=== PATIENT | male | born 1980 | race Caucasian/White ===

== ENCOUNTER 2020-09-01 11:05 | Emergency (ER) | payer OTHER, SELFPAY ==
--- NOTE | ~2020-09-01 | XR_ITS ---
EXAMINATION: XR chest 2V CLINICAL INFORMATION: Hypoxia wheezing. COMPARISON: Prior chest x-ray 07/18/2018. TECHNIQUE: XR chest 2V Lungs and Digna: Both lungs are clear. Pleura: Normal. Costophrenic angles are sharp. No pneumothorax. Heart: The heart is normal in size. Mediastinum: The mediastinum is within normal limits.. Bones: Skeletal structures included are normal for patient's age. XR/XR chest 2V IMPRESSION: No radiographic evidence of acute infiltrates or failure to explain patient's symptoms. No pleural effusion.
[2020-09-01 11:11] VITALS: BP 152/78; PULSE 83; RESP 16; TEMP 36.7; O2SAT 87; BMI 35.6
--- NOTE | 2020-09-01 12:14 | ECG_ITS ---
Test Reason : CP Blood Pressure : / mmHG Vent. Rate : 075 BPM Atrial Rate : 075 BPM P-R Int : 142 ms QRS Dur : 098 ms QT Int : 380 ms P-R-T Axes : 071 075 049 degrees QTc Int : 424 ms Normal sinus rhythm T wave abnormality, consider anterior ischemia Abnormal ECG When compared with ECG of 30-JUL-2011 17:29, Non-specific change in ST segment in Anterior leads T wave inversion now evident in Anterior leads Referred By: Theresa Ching Electronically Signed By:JERRY CALLAWAY
--- NOTE | 2020-09-01 12:22 | ED.GENADULT ---
HPI - General Adult General Chief complaint: Abdominal Pain Stated complaint: ABD PAIN - DARK STOOL Time Seen by Provider: 09/01/20 12:04 Source: patient Mode of arrival: ambulatory History of Present Illness HPI narrative: 39 y.o. M with PMH of prior substance use on soboxone presenting to the ED with multiple complaints. He states over the past week he has been having upper abdominal pain and black stools x 1 week. He has a sour taste to his mouth. He has accompanied nausea but no vomiting. His PO intake was decreased due to his sour taste. No associated loss of smell. He also endorses feeling SOB. At times gets central chest pain that radiates from his abdominal pain. When he arrived he was told his oxygen was in the 80s. he is supposed to wear a CPAP at nightime but never receieved one. Deniex oxygen use during the day. Also reporting muscle spasticity in his hand, he states his fingers jump if he were to go smoke a cigarette. He otherwise denies fevers, cough, vomiting, urinary changes. He denies OTC NSAID use. He drank one alcohol drink last week but denies everyday use. Related Data Previous Rx's Medication Instructions Recorded albuterol sulfate [Ventolin HFA] 2 puff INHALATION Q6H PRN #6.7 g 09/01/20 prednisone 20 mg PO BID 4 Days #8 tab 09/01/20 Allergies Allergy/AdvReac Type Severity Reaction Status Date / Time bee pollen [BEE STINGS] Allergy Severe ANAPHALAXSI Unverified 03/21/20 15:44 S acetaminophen [From TYLENOL] Allergy Intermediate HIVES Unverified 03/21/20 15:44 NSAIDS (Non-Steroidal Allergy Intermediate HIVES, Unverified 03/21/20 15:44 Anti-Inflamma UPSETS [NSAIDS (NON-STEROIDAL STOMACHE ANTI-INFLAMMA] Review of Systems Constitutional: Constitutional: Denies fever(s) and Denies headache(s) Eyes: Eyes: Reports no additional eye complaints ENT: Denies headache(s) Comments: sour taste in mouth Cardiovascular: Cardiovascular: Reports chest pain and Reports dyspnea Respiratory: Respiratory: Reports dyspnea Gastrointestinal: Gastrointestinal: Reports abdominal pain, Reports melena and Denies vomiting Genitourinary: Genitourinary: Denies dysuria Musculoskeletal: Comments: spasiticity in hands Neurologic: Denies headache(s) PMFSH Past Medical History Medical History Asthma COPD (chronic obstructive pulmonary disease) Smoker Substance abuse Social History Social History (Updated 09/01/20 @ 12:42 by ERIBERTO Ruby) Smoking Status: Current every day smoker Substance Use Type: Marijuana Substance Use Frequency: Chronic Longstanding Advance Directives: No Advance Directives Information Provided: Yes Physical Exam Vital Signs: Vital Signs: Last Vital Signs Temp 98.1 F 09/01/20 11:11 Pulse 88 09/01/20 16:00 Resp 20 09/01/20 16:00 BP 126/76 09/01/20 16:00 Pulse Ox 87 L 09/01/20 16:00 Body Mass Index 35.6 Const: Other: poor hygiene HENMT: Head: Yes atraumatic Eyes: Pupils: Equal, round and reactive pupils present Neck: Neck: Yes full ROM and Yes supple Resp: Other: wheezing throughout, hypoxia to high 80s on RA, 96% on 2L, no tachypnea or dyspnea, able to speak in full sentences Cardio: Rate: regular rate Rhythm: regular rhythm GI: Other: mild tenderness to upper abdomen, no peritoneal signs, not guarding Inspection: No distended : Other: guiac negative, stool dark brown, no melena, RN at bedside during rectal exam Back/Spine/Pelvis: Other: normal ROM Skin: Other: warm, dry Neuro: Other: A&O x4, nonfocal neurologc<del>i</del>al exam General: moves all extremities Cranial nerves: Yes Equal, round and reactive pupils present Extrem: Other: no calf tenderness, no peripheral edema General: Yes full ROM Psych: Appearance: disheveled Course Reevaluation(s) Reevaluation #1: Pt. returned from xray, not on the O2 sat probe, not on nasal cannula, placed on O2 sat probe in low 80s, no dyspnea, speaking in full sentences, pt. placed on 3L nasal cannula with appropriate improvement of his oxygen saturation levels. Respiratory therapy at bedside to provide duoneb tx and check ABG since his bicarb level is high. Attending updated regarding lab findings. Time: 14:29 Reevaluation #2: Discussed admission for his hypoxia most likely secondary to his COPD. I discussed his troponin is elevated and will need further work up. His H&H is stable, no indication for a transfusion. His CXR did not show free air or infectious process. Pt is anxious and states he has to go home to take care of some business, assured me he would return. I encouraged him to stay at least for a delta troponin. He is willing to stay for this. His ABG did show elevated PCO2, but normal PH, which is most likely compensated chronic process rather than acute. He is able to speak in full sentences and is not dyspneic, therefore BiPap not initiated. Time: 14:58 Time: 16:33 Additional Reevaluation(s): O2 saturation 91% on 2L. I discussed he should stay for his hypoxia. His delta troponin downtrended but still indeterminate. He is concerned for the taste in his mouth, will swab for COVID. I discussed at length with him that he has multiple processes going on and he needs to be admitted for further management. He continues to decline. I vocalized concern for possible GI bleed, worsening bleeding, worsening hypoxia which could lead to respiratory arrest, cardiac arrest and even . Pt. is able to verbalize understanding of the severity of his condition. He has full capacity to decline medical admission. I encouraged him to return. Will send rx for steroids and an inhaler for his COPD. Pt. will leave AMA. Attending updated regarding findings and ultimate disposition. Medical Decision Making [facility] Narrative Medical decision making narrative: 31-year-old male presents emergency department with multiple complaints, Vital signs significant for hypoxia O2 sat 86-80% on room air, improved to 96% on 2 L, otherwise hemodynamically stable Will plan for CBC to assess for leukocytosis, anemia, renal dysfunction. We will check for electrolyte abnormalities. Will check calcium and magnesium level due to his spasicity in his extremities. No tremors noted. No reported of incontinence to suggest seizures. No focal weakness to suggest CVA. Will check LFT for hepatobiliary disease, lipase for pancreatitis. His abdominal exam is benign, no focal weakness. GI bleed is on the differential given his report of black stool, however guiac is negative, will check H&H. No hx of variceal bleed. Will give IV protonix. Will defer octreotide and ceftriaxone. No ETOH use he reports, will check ethanol level. No report of NSAID use. No focal tenderness to suggest cholecysitits, appendicitis. No peritoneal signs. Doubt a perforated ulcer since he has a nonperitoneal exam. Will give GI cocktail. IV fluids. Will check troponin and EKG for ischemia. WIll evaluate CXR for underlying PNA. His hypoxia is most likely secondary to his asthma/COPD, since he has diffuse wheezing. no associated respiratory distress. WIll obtain a type and screen in case he needs a transfusion for his symptoms. Aortic dissection less likely given no ripping/tearing CP into the back. PE less likely as he does not have associated tachycardia, no unilateral leg swelling. CHF exacerbation less likely since he has no pitting edema in his extremities. case discussed with attending Lab Data Result diagrams: 09/01/20 13:20 09/01/20 13:20 Labs: Lab Results 09/01/20 09/01/20 09/01/20 Range/Units 13:20 13:20 13:20 WBC 7.6 (4.8-10.8) X10*3/uL RBC 4.63 (4.60-5.80) X10*6/uL Hgb 13.7 L (14.0-18.0) g/dl Hct 45.7 (42-52) % MCV 98.7 H (80-98) fL MCH 29.6 (27.0-33.0) pg MCHC 30.0 L (31.0-36.0) g/dl RDW 14.9 (11.0-16.0) % Plt Count 194 (160-400) X10*3/uL MPV 9.4 (9.4-12.4) fL Immature Gran % (Auto) 0.3 (0.0-0.4) % Neut % (Auto) 71.3 (45-73) % Lymph % (Auto) 17.0 L (20-40) % [place] % (Auto) 10.6 (2-11) % Eos % (Auto) 0.4 (0-4) % Baso % (Auto) 0.4 (0-2) % Lymph # (Auto) 1.3 (1.2-4.9) X10*3/uL [place] # (Auto) 0.8 (0.1-1.2) X10*3/uL Eos # (Auto) 0.0 (0.0-0.4) X10*3/uL Baso # (Auto) 0.0 (0.0-0.2) X10*3/uL Abs Immat Gran (auto) 0.02 (0.00-0.03) X10*3/uL Absolute Neuts (auto) 5.5 (2.0-8.3) X10*3/uL Absolute Nucleated RBC 0.000 (0.0-0.012) X10*3/uL Nucleated RBC % (auto) 0.0 (0.0-0.2) /100WBC PT (10.8-13.0) SEC INR (0.9-1.1) ABG pH (7.35-7.45) ABG pCO2 (32-45) mmHg ABG pO2 (83-108) mmHg ABG HCO3 (22-26) mmol/L ABG O2 Saturation % ABG Base Excess Oxygen Given Sodium 138 (135-145) mmol/L Potassium 4.8 (3.3-5.1) mmol/L Chloride 91 L (96-108) mmol/L Carbon Dioxide 43 H* (22-29) mmol/L Anion Gap 9 L (12-20) BUN 18 H (9-16) mg/dL Creatinine 0.89 (0.5-1.4) mg/dL Estim Creat Clear Calc 116.6 Estimated GFR > 60 Random Glucose 87 (60-115) mg/dL Calcium 8.3 L (8.4-10.2) mg/dL Magnesium 2.2 (1.6-2.6) mg/dL Total Bilirubin 0.5 (0.0-1.0) mg/dL Direct Bilirubin 0.3 (0.0-0.5) mg/dL AST 25 (5-37) U/L ALT 32 (0-40) U/L Alkaline Phosphatase 48 (39-117) U/L Troponin I High Sens 21.5 (<3.5-35.0) ng/L Total Protein 5.4 L (6.5-8.0) g/dL Albumin 3.6 (3.5-5.0) g/dL Lipase 18 (8-78) U/L Ethyl Alcohol mg/dL Blood Type Antibody Screen 09/01/20 09/01/20 09/01/20 Range/Units 13:20 13:20 13:20 WBC (4.8-10.8) X10*3/uL RBC (4.60-5.80) X10*6/uL Hgb (14.0-18.0) g/dl Hct (42-52) % MCV (80-98) fL MCH (27.0-33.0) pg MCHC (31.0-36.0) g/dl RDW (11.0-16.0) % Plt Count (160-400) X10*3/uL MPV (9.4-12.4) fL Immature Gran % (Auto) (0.0-0.4) % Neut % (Auto) (45-73) % Lymph % (Auto) (20-40) % [place] % (Auto) (2-11) % Eos % (Auto) (0-4) % Baso % (Auto) (0-2) % Lymph # (Auto) (1.2-4.9) X10*3/uL [place] # (Auto) (0.1-1.2) X10*3/uL Eos # (Auto) (0.0-0.4) X10*3/uL Baso # (Auto) (0.0-0.2) X10*3/uL Abs Immat Gran (auto) (0.00-0.03) X10*3/uL Absolute Neuts (auto) (2.0-8.3) X10*3/uL Absolute Nucleated RBC (0.0-0.012) X10*3/uL Nucleated RBC % (auto) (0.0-0.2) /100WBC PT 11.5 (10.8-13.0) SEC INR 1.0 (0.9-1.1) ABG pH (7.35-7.45) ABG pCO2 (32-45) mmHg ABG pO2 (83-108) mmHg ABG HCO3 (22-26) mmol/L ABG O2 Saturation % ABG Base Excess Oxygen Given Sodium (135-145) mmol/L Potassium (3.3-5.1) mmol/L Chloride (96-108) mmol/L Carbon Dioxide (22-29) mmol/L Anion Gap (12-20) BUN (9-16) mg/dL Creatinine (0.5-1.4) mg/dL Estim Creat Clear Calc Estimated GFR Random Glucose (60-115) mg/dL Calcium 8.7 (8.4-10.2) mg/dL Magnesium (1.6-2.6) mg/dL Total Bilirubin (0.0-1.0) mg/dL Direct Bilirubin (0.0-0.5) mg/dL AST (5-37) U/L ALT (0-40) U/L Alkaline Phosphatase (39-117) U/L Troponin I High Sens (<3.5-35.0) ng/L Total Protein (6.5-8.0) g/dL Albumin (3.5-5.0) g/dL Lipase (8-78) U/L Ethyl Alcohol < 10 mg/dL Blood Type Antibody Screen 09/01/20 09/01/20 09/01/20 Range/Units 14:35 15:40 15:40 WBC (4.8-10.8) X10*3/uL RBC (4.60-5.80) X10*6/uL Hgb (14.0-18.0) g/dl Hct (42-52) % MCV (80-98) fL MCH (27.0-33.0) pg MCHC (31.0-36.0) g/dl RDW (11.0-16.0) % Plt Count (160-400) X10*3/uL MPV (9.4-12.4) fL Immature Gran % (Auto) (0.0-0.4) % Neut % (Auto) (45-73) % Lymph % (Auto) (20-40) % [place] % (Auto) (2-11) % Eos % (Auto) (0-4) % Baso % (Auto) (0-2) % Lymph # (Auto) (1.2-4.9) X10*3/uL [place] # (Auto) (0.1-1.2) X10*3/uL Eos # (Auto) (0.0-0.4) X10*3/uL Baso # (Auto) (0.0-0.2) X10*3/uL Abs Immat Gran (auto) (0.00-0.03) X10*3/uL Absolute Neuts (auto) (2.0-8.3) X10*3/uL Absolute Nucleated RBC (0.0-0.012) X10*3/uL Nucleated RBC % (auto) (0.0-0.2) /100WBC PT (10.8-13.0) SEC INR (0.9-1.1) ABG pH 7.41 (7.35-7.45) ABG pCO2 68 H* (32-45) mmHg ABG pO2 70 L (83-108) mmHg ABG HCO3 43 H (22-26) mmol/L ABG O2 Saturation 93.0 % ABG Base Excess 15.3 Oxygen Given 3 L Sodium (135-145) mmol/L Potassium (3.3-5.1) mmol/L Chloride (96-108) mmol/L Carbon Dioxide (22-29) mmol/L Anion Gap (12-20) BUN (9-16) mg/dL Creatinine (0.5-1.4) mg/dL Estim Creat Clear Calc Estimated GFR Random Glucose (60-115) mg/dL Calcium (8.4-10.2) mg/dL Magnesium (1.6-2.6) mg/dL Total Bilirubin (0.0-1.0) mg/dL Direct Bilirubin (0.0-0.5) mg/dL AST (5-37) U/L ALT (0-40) U/L Alkaline Phosphatase (39-117) U/L Troponin I High Sens 21.1 (<3.5-35.0) ng/L Total Protein (6.5-8.0) g/dL Albumin (3.5-5.0) g/dL Lipase (8-78) U/L Ethyl Alcohol mg/dL Blood Type O Negative Antibody Screen NEGATIVE ECG Data Attestation: I personally reviewed and interpreted this ECG as follows: Interpretation: NSR 75 QTC 424 T wave inversion in V1, V2, V3, V4 as compared to EKG in 2012 T wave flattening in III no STEMI Discharge Plan Discharge Clinical Impression: Asthma exacerbation in COPD, Hypoxia, Elevated troponin, GI bleed Patient Disposition: Left Against Medical Advice Instructions: Gastrointestinal Bleeding (ED), COPD (Chronic Obstructive Pulmonary Disease) (ED), Hypoxia (ED) Additional Instructions: You were seen in the emergency department for multiple complaints. Your lab tests showed your heart marker was elevated, your carbon dioxide level was also elevated. Your oxygen saturation levels were low. We also think you may be having a gastrointestinal bleed going on. We recommended you be admitted to the hospital but you declined. We encourage you to return any time should your symptoms worsen. You have decided to leave against medical advice. Prescriptions: New prednisone 20 mg tablet 20 mg PO BID 4 Days Qty: 8 RF: 0 albuterol sulfate [Ventolin HFA] 90 mcg/actuation HFA aerosol inhaler 2 puff inhalation Q6H PRN (Reason: shortness of breath or wheezing) Qty: 6.7 RF: 0 Interventions: ED Discharge Assessment Last Done: 09/01/20 17:34 Discharge Date/Time: 09/01/20 17:05
[2020-09-01] MEDS: Albuterol Sulfate 90 MCG 8 GM INHALER 6 PUFF INHALE (12:29)
[2020-09-01 12:30] VITALS: PULSE 69; O2SAT 97
[2020-09-01] MEDS: Lidocaine HCl Viscous 2 % 15 ML SOLUTION MUCOUS MEM (13:25)
[2020-09-01] MEDS: Magnesium Hydrox/Alum Hydrox 30 ML ORAL.SUSP PO (13:25)
[2020-09-01 13:26] LABS: MANUAL DIFF FLAG NO
[2020-09-01] MEDS: 0.9 % Sodium Chloride 1,000 ML 999 ML IVCONT (13:26)
[2020-09-01 13:28] LABS: Basophils Percent Auto 0.4 % (0-2); Eosinophils Percent Auto 0.4 % (0-4); Hematocrit 45.7 % (42-52); Hemoglobin 13.7 g/dl (14.0-18.0); Imm Gran Abs Auto 0.02 X10*3/uL (0.00-0.03); Imm Gran Pct Auto 0.3 % (0.0-0.4); Lymphocytes Absolute Auto 1.3 X10*3/uL (1.2-4.9); Mean Corpuscular Hemoglobin 29.6 pg (27.0-33.0); Mean Corpuscular Volume 98.7 fL (80-98); Mean Platelet Volume 9.4 fL (9.4-12.4); Monocytes Absolute Auto 0.8 X10*3/uL (0.1-1.2); Monocytes Percent Auto 10.6 % (2-11); Neutrophils Absolute Auto 5.5 X10*3/uL (2.0-8.3); Neutrophils Percent Auto 71.3 % (45-73); Platelet Count 194 X10*3/uL (160-400); Red Blood Count 4.63 X10*6/uL (4.60-5.80); Red Cell Distribution Width 14.9 % (11.0-16.0); White Blood Count 7.6 X10*3/uL (4.8-10.8)
[2020-09-01 13:38] LABS: Prothrombin Time 11.5 SEC (10.8-13.0)
[2020-09-01 13:56] LABS: Calcium 8.7 mg/dL (8.4-10.2)
[2020-09-01 13:57] LABS: Ethanol < 10 mg/dL
[2020-09-01 14:05] LABS: Troponin-I High Sensitivity 21.5 ng/L (<3.5-35.0)
[2020-09-01 14:07] LABS: Alanine Aminotransferase 32 U/L (0-40); Albumin Level 3.6 g/dL (3.5-5.0); Alkaline Phosphatase 48 U/L (39-117); Anion Gap 9 (12-20); Aspartate Amino Transferase 25 U/L (5-37); Bilirubin Direct 0.3 mg/dL (0.0-0.5); Bilirubin Total 0.5 mg/dL (0.0-1.0); Blood Urea Nitrogen 18 mg/dL (9-16); Calcium 8.3 mg/dL (8.4-10.2); Carbon Dioxide 43 mmol/L (22-29); Chloride 91 mmol/L (96-108); Creatinine Clr Calc Pharmacy 116.6; Estimated Glomerular Filt Rate > 60; Glucose Random 87 mg/dL (60-115); Lipase 18 U/L (8-78); Magnesium 2.2 mg/dL (1.6-2.6); Potassium 4.8 mmol/L (3.3-5.1); Sodium 138 mmol/L (135-145); Total Protein 5.4 g/dL (6.5-8.0)
[2020-09-01 14:34] VITALS: O2SAT 92
[2020-09-01 14:39] LABS: Pt Ventilation O2% 3 L
[2020-09-01] MEDS: Albuterol Sulfate (0.083%) 2.5 MG/3 ML VIAL.NEB 7.5 MG INHALE (14:39)
[2020-09-01] MEDS: Ipratropium Bromide 0.5 MG/2.5 ML SOLUTION INHALE (14:39)
[2020-09-01 14:40] VITALS: PULSE 77; O2SAT 92
[2020-09-01 14:43] LABS: Base Excess ABG 15.3
[2020-09-01 14:44] LABS: HCO3 ABG 43 mmol/L (22-26); PO2 ABG 70 mmHg (83-108); pH ABG 7.41 (7.35-7.45)
[2020-09-01 14:45] LABS: ABG PCO2 68 mmHg (32-45)
[2020-09-01] MEDS: predniSONE 20 MG TABLET 60 MG PO (15:15)
[2020-09-01] MEDS: Pantoprazole Sodium 40 MG/10 ML VIAL 80 MG IVPUSH (15:28)
[2020-09-01 15:30] VITALS: PULSE 76; RESP 12; O2SAT 93
[2020-09-01 16:00] VITALS: BP 126/76; PULSE 88; RESP 20; O2SAT 87
[2020-09-01 16:17] LABS: Troponin-I High Sensitivity 21.1 ng/L (<3.5-35.0)
== END 2020-09-01 17:05 | disposition left against medical advice (07) ==
PROVIDERS: Physician Assistant Medical; Emergency Provider Emergency Medicine Emergency Medical Services; PCP Internal Medicine
DX: J44.1 Chronic obstructive pulmonary disease with (acute) exacerbation (principal); R09.02 Hypoxemia; R77.8 Other specified abnormalities of plasma proteins; K92.2 Gastrointestinal hemorrhage, unspecified; R10.9 Unspecified abdominal pain; F17.200 Nicotine dependence, unspecified, uncomplicated; Z71.6 Tobacco abuse counseling; F12.90 Cannabis use, unspecified, uncomplicated; Z79.899 Other long term (current) drug therapy
CPT/HCPCS: 36415; 71046; 80048; 80076; 80320; 82310; 82803; 83690; 83735; 84484; 85025; 85610; 86850; 86900; 86901; 93005; 94640; 94644; 96361; 96374; 99284

== ENCOUNTER 2020-09-14 14:56 | Emergency (ER) | payer OTHER, SELFPAY | END 2020-09-14 18:00 | disposition left against medical advice (07) | PROVIDERS: Emergency Provider Emergency Medicine; PCP Internal Medicine | DX: Z04.9 Encounter for examination and observation for unspecified reason (principal) ==

== ENCOUNTER 2021-03-12 09:11 | Outpatient (REF) | payer OTHER, SELFPAY ==
--- NOTE | 2021-03-12 09:15 | EMG_ITS ---
This is a 40-year-old man with a 6 to 8-month history of bilateral hand numbness in the upper extremities with the right being worse than the left, and some burning pain in the base of his neck. He is on no medications. PHYSICAL EXAMINATION: He is alert and oriented with normal intellectual functions. Cranial nerves II through XII are normal. Muscle tone and strength are normal in all 4 extremities. Deep tendon reflexes symmetrical. No Tinel or Phalen sign. IMPRESSION: Carpal tunnel syndrome. Nerve conduction EMG study: Moderate carpal tunnel syndrome bilaterally, slightly worse on the right. Normal EMG of the right C5-T1 innervated muscles. MD BARBARA Nguyen/JAMES / [id number]
== END 2021-03-12 09:12 | disposition home or self-care (01) ==
LOC: HO.NEURO 09:11
PROVIDERS: PCP Internal Medicine; Visit Provider Internal Medicine
DX: G56.03 Carpal tunnel syndrome, bilateral upper limbs (principal)
CPT/HCPCS: 95886; 95913

== ENCOUNTER → 2021-05-07 14:06 | Outpatient (BNVA) | payer OTHER, SELFPAY | PROVIDERS: Visit Provider Orthopaedic Surgery | DX: G56.03 Carpal tunnel syndrome, bilateral upper limbs (principal); G56.21 Lesion of ulnar nerve, right upper limb | CPT/HCPCS: 99202 ==

== ENCOUNTER → 2021-06-17 15:30 | Outpatient (BNVA) | payer OTHER, SELFPAY | PROVIDERS: Visit Provider Orthopaedic Surgery | DX: G56.21 Lesion of ulnar nerve, right upper limb (principal); G56.03 Carpal tunnel syndrome, bilateral upper limbs | CPT/HCPCS: 99212 ==

== ENCOUNTER 2021-06-23 07:55 | Day surgery (SDC) | payer OTHER, SELFPAY ==
[2021-06-16 10:26] VITALS: BMI 36.3
[2021-06-23 08:13] VITALS: BP 136/73; PULSE 60; RESP 16; TEMP 36.7; O2SAT 90
[2021-06-23 11:06] VITALS: BP 124/78; PULSE 55; RESP 18; TEMP 37.2; O2SAT 100
--- NOTE | 2021-06-23 11:18 | MHC.SHP ---
Pre-Procedural Eval Section A Date of Service: 06/23/21 The patient is an INPATIENT: No Changes since office visit: No Cold of Flu in the past 2 weeks, No New Medical Problems, No Changes in Medication and No Patient answered all questions The History & Physical has been completed within 30 days and I have reviewed it.: Yes Section B Chief Complaint: carpal tunnel right side Allergies: Allergies Allergy/AdvReac Type Severity Reaction Status Date / Time bee pollen [BEE STINGS] Allergy Severe ANAPHALAXSI Verified 06/17/21 15:35 S acetaminophen [From TYLENOL] Allergy Intermediate HIVES Verified 06/17/21 15:35 NSAIDS (Non-Steroidal Allergy Intermediate HIVES, Verified 06/17/21 15:35 Anti-Inflamma UPSETS [NSAIDS (NON-STEROIDAL STOMACHE ANTI-INFLAMMA] Plan I have reviewed the history and physical and performed a pertinent physical examination on my patient. No changes have occurred unless specified.
--- NOTE | 2021-06-23 11:18 | W.PM.OPN ---
Operative Note Operative Note Date of Service: 06/23/21 Narrative: Preop diagnosis: 1. Right Carpal tunnel syndrome Postop diagnosis: same Procedure: 1. right Carpal tunnel release Surgeon: Arianna Padron MD Anesthesia: local block using 1% lidocaine with epinephrine Findings: Thickened transverse carpal ligament. EBL: Less than 5 mL Specimens: None Complications: None Disposition: Brought to recovery room in stable condition Plan: Follow-up for 10-14 days for wound check and suture removal Indications: The patient is 40 years old, with right carpal tunnel syndrome that has been unresponsive to nonoperative management. The risks and benefits of operative treatment including but not limited to risk of damage to blood vessels, nerves, tendons, infection, persistent pain, persistent symptoms, or possible need for additional surgery were discussed with the patient and the patient wishes to proceed with surgery. Procedure: Once consent was obtained a local block was performed using a combination of 1% lidocaine with epinephrine. The patient was then brought back to the operating suite and placed on the operative table in supine position. A tourniquet was applied to the proximal aspect of the right upper extremity and the limb was prepped and draped in a standard surgical fashion. Once assured that we had a good block, a 1.5 cm longitudinal incision was made centered over the carpal tunnel. The incision was made through the skin to the subcutaneous tissues using a #15 blade. Dissection was made down to the level of the transverse carpal ligament with care being taken to protect the palmar cutaneous nerve. Once the transverse carpal ligament was clearly visualized, a longitudinal incision was made in the transverse carpal ligament 1st using a #15 blade, then using tenotomy scissors under direct visualization. Care was taken to look for and protect the motor branch of the median nerve when seen in this area. Once satisfied with our carpal tunnel release the wound was copiously irrigated with normal saline and hemostasis was obtained with a brief period of local pressure. The skin edges were reapproximated with some 5.0 nylon suture material and a sterile dressing was applied. The patient appears to have tolerated the procedure well and with no complications. All digits were well vascularized at the conclusion of the case.
== END 2021-06-23 11:20 | disposition home or self-care (01) ==
PROVIDERS: PCP Internal Medicine; Visit Provider Orthopaedic Surgery
PROC: (CPT 64721; principal; 2021-06-23 09:30)
DX: G56.01 Carpal tunnel syndrome, right upper limb (principal); J44.9 Chronic obstructive pulmonary disease, unspecified; F12.90 Cannabis use, unspecified, uncomplicated; Z88.8 Allergy status to other drugs, medicaments and biological substances; Z87.891 Personal history of nicotine dependence; Z79.899 Other long term (current) drug therapy
CPT/HCPCS: 64721

== ENCOUNTER → 2021-07-08 12:23 | Outpatient (BNVA) | payer OTHER, SELFPAY | PROVIDERS: Visit Provider Orthopaedic Surgery | DX: Z48.89 Encounter for other specified surgical aftercare (principal); Z86.69 Personal history of other diseases of the nervous system and sense organs | CPT/HCPCS: 99212 ==

== ENCOUNTER 2021-07-24 13:59 | Day surgery (SDC) | payer OTHER, SELFPAY ==
[2021-07-14 13:42] VITALS: BMI 36.3
[2021-07-24 14:17] VITALS: BP 134/87; PULSE 54; RESP 18; TEMP 36.9; O2SAT 96; BMI 37.4
[2021-07-24 15:06] VITALS: BP 127/72; PULSE 57; RESP 16; TEMP 36.4; O2SAT 96
--- NOTE | 2021-07-24 15:24 | MHC.SHP ---
Pre-Procedural Eval Section A Date of Service: 07/24/21 The patient is an INPATIENT: No Changes since office visit: No Cold of Flu in the past 2 weeks, No New Medical Problems, No Changes in Medication and No Patient answered all questions The History & Physical has been completed within 30 days and I have reviewed it.: Yes Section B Chief Complaint: carpal tunnel release Allergies: Allergies Allergy/AdvReac Type Severity Reaction Status Date / Time bee pollen [BEE STINGS] Allergy Severe ANAPHALAXSI Verified 06/17/21 15:35 S acetaminophen [From TYLENOL] Allergy Intermediate HIVES Verified 06/17/21 15:35 NSAIDS (Non-Steroidal Allergy Intermediate HIVES, Verified 06/17/21 15:35 Anti-Inflamma UPSETS [NSAIDS (NON-STEROIDAL STOMACHE ANTI-INFLAMMA] Plan I have reviewed the history and physical and performed a pertinent physical examination on my patient. No changes have occurred unless specified.
--- NOTE | 2021-07-24 15:25 | W.PM.OPN ---
Operative Note Operative Note Date of Service: 07/24/21 Narrative: Preop diagnosis: 1. left Carpal tunnel syndrome Postop diagnosis: same Procedure: 1. left Carpal tunnel release Surgeon: Arianna Padron MD Anesthesia: local block using 1% lidocaine with epinephrine Findings: Thickened transverse carpal ligament. EBL: Less than 5 mL Specimens: None Complications: None Disposition: Brought to recovery room in stable condition Plan: Follow-up for 10-14 days for wound check and suture removal Indications: The patient is 40 years old, with left carpal tunnel syndrome that has been unresponsive to nonoperative management. The risks and benefits of operative treatment including but not limited to risk of damage to blood vessels, nerves, tendons, infection, persistent pain, persistent symptoms, or possible need for additional surgery were discussed with the patient and the patient wishes to proceed with surgery. Procedure: Once consent was obtained a local block was performed using a combination of 1% lidocaine with epinephrine. The patient was then brought back to the operating suite and placed on the operative table in supine position. A tourniquet was applied to the proximal aspect of the left upper extremity and the limb was prepped and draped in a standard surgical fashion. Once assured that we had a good block, a 1.5 cm longitudinal incision was made centered over the carpal tunnel. The incision was made through the skin to the subcutaneous tissues using a #15 blade. Dissection was made down to the level of the transverse carpal ligament with care being taken to protect the palmar cutaneous nerve. Once the transverse carpal ligament was clearly visualized, a longitudinal incision was made in the transverse carpal ligament 1st using a #15 blade, then using tenotomy scissors under direct visualization. Care was taken to look for and protect the motor branch of the median nerve when seen in this area. Once satisfied with our carpal tunnel release the wound was copiously irrigated with normal saline and hemostasis was obtained with a brief period of local pressure. The skin edges were reapproximated with some 5.0 nylon suture material and a sterile dressing was applied. The patient appears to have tolerated the procedure well and with no complications. All digits were well vascularized at the conclusion of the case.
== END 2021-07-24 15:37 | disposition home or self-care (01) ==
PROVIDERS: PCP Internal Medicine; Visit Provider Orthopaedic Surgery
PROC: (CPT 64721; principal; 2021-07-24 14:10)
DX: G56.02 Carpal tunnel syndrome, left upper limb (principal); J44.9 Chronic obstructive pulmonary disease, unspecified; F17.210 Nicotine dependence, cigarettes, uncomplicated; F12.90 Cannabis use, unspecified, uncomplicated
CPT/HCPCS: 64721

== ENCOUNTER → 2021-08-06 10:41 | Outpatient (BNVA) | payer OTHER, SELFPAY | PROVIDERS: PCP Internal Medicine; Visit Provider Orthopaedic Surgery | DX: G56.03 Carpal tunnel syndrome, bilateral upper limbs (principal); G56.21 Lesion of ulnar nerve, right upper limb | CPT/HCPCS: 99212 ==

== ENCOUNTER 2021-12-27 17:21 | Emergency (ER) | payer OTHER, SELFPAY ==
[2021-12-27 17:45] VITALS: BP 123/59; PULSE 80; RESP 18; TEMP 37.1; O2SAT 94; BMI 35.9
[2021-12-27 18:13] LABS: MANUAL DIFF FLAG NO
[2021-12-27 18:16] LABS: Basophils Percent Auto 0.2 % (0-2); Eosinophils Percent Auto 0.3 % (0-4); Hematocrit 37.5 % (42.0-52.0); Hemoglobin 12.4 g/dl (14.0-18.0); Imm Gran Abs Auto 0.04 X10*3/uL (0.00-0.03); Imm Gran Pct Auto 0.3 % (0.0-0.4); Lymphocytes Absolute Auto 0.9 X10*3/uL (1.2-4.9); Lymphocytes Percent Auto 7.6 % (20-40); Mean Corpuscular HGB Conc 33.1 g/dl (31.0-36.0); Mean Corpuscular Hemoglobin 30.2 pg (27.0-33.0); Mean Corpuscular Volume 91.5 fL (80.0-98.0); Mean Platelet Volume 9.4 fL (9.4-12.4); Monocytes Absolute Auto 0.9 X10*3/uL (0.1-1.2); Monocytes Percent Auto 7.5 % (2-11); Neutrophils Absolute Auto 9.7 x10*3/uL (2.0-8.3); Neutrophils Percent Auto 84.1 % (45-73); Platelet Count 234 X10*3/uL (160-400); Red Cell Distribution Width 11.9 % (11.0-16.0); White Blood Count 11.6 X10*3/uL (4.8-10.8)
[2021-12-27 18:30] LABS: Alanine Aminotransferase 18 U/L (0-40); Albumin Level 3.9 g/dL (3.5-5.0); Alkaline Phosphatase 68 U/L (39-117); Anion Gap 13 (12-20); Aspartate Amino Transferase 20 U/L (5-37); Bilirubin Total 0.4 mg/dL (0.0-1.0); Blood Urea Nitrogen 8 mg/dL (9-16); Calcium 9.1 mg/dL (8.4-10.2); Carbon Dioxide 33 mmol/L (22-29); Chloride 95 mmol/L (96-108); Creatinine Clr Calc Pharmacy 115.8; Estimated Glomerular Filt Rate > 60; Glucose Random 134 mg/dL (60-115); Potassium 3.9 mmol/L (3.3-5.1); Sodium 137 mmol/L (135-145); Total Protein 6.5 g/dL (6.5-8.0)
--- NOTE | 2021-12-27 19:35 | ED.SKABFB ---
HPI - Skin/Abscess/Foreign Bdy General Chief complaint: Skin/Abscess/Foreign Body Stated complaint: Infected spider bite Source: patient Mode of arrival: ambulatory Limitations: no limitations History of Present Illness HPI narrative: 41-year-old male presents with a suspected spider bite that occurred 6 days ago that is now infected, red and swollen. Patient has been draining the pus at home, using warm compresses, but feels that the site is getting worse. He does not report any fevers, chills, chest pain or pressure, palpitations, diaphoresis, weakness, or lightheadedness. MD complaint: insect bite/sting and abscess/boil Onset (ago): day(s) (6) Tetanus up to date: yes Location: [facility] Severity: moderate Severity scale (1-10): 6 Quality: burning and aching Pain Consistency: constant Relieving factors: immobilization Exacerbating factors: palpation and movement Context: witnessed insect bite Associated symptoms: denies other symptoms Treatments prior to arrival: attempted to drain pus at home and OTC topical medication Related Data Home Medications Medication Instructions Recorded Confirmed bupropion HCl 200 mg tablet,12 hr 200 mg PO DAILY 05/07/21 sustained-release (Wellbutrin SR) clonazepam 0.5 mg tablet 0.25 mg PO BID 05/07/21 buprenorphine 8 mg-naloxone 2 mg 1 strip sublingual TID 05/23/21 05/23/21 sublingual film Previous Rx's Medication Instructions Recorded albuterol sulfate 90 mcg/actuation 2 puff inhalation Q6H PRN 09/01/20 aerosol inhaler (Ventolin HFA) shortness of breath or wheezing #6.7 grams prednisone 20 mg tablet 20 mg PO BID 4 days #8 tabs 09/01/20 oxycodone-acetaminophen 5 mg-325 1 tab PO Q6H PRN pain #5 tabs 07/24/21 mg tablet cefuroxime axetil 500 mg tablet 500 mg PO Q12H 10 days #20 tabs 12/27/21 doxycycline monohydrate 100 mg 100 mg PO BID 10 days #20 caps 12/27/21 capsule Allergies Allergy/AdvReac Type Severity Reaction Status Date / Time bee pollen [BEE STINGS] Allergy Severe ANAPHALAXSI Verified 08/06/21 11:13 S acetaminophen [From TYLENOL] Allergy Intermediate HIVES Verified 08/06/21 11:13 NSAIDS (Non-Steroidal Allergy Intermediate HIVES, Verified 08/06/21 11:13 Anti-Inflamma UPSETS [NSAIDS (NON-STEROIDAL STOMACHE ANTI-INFLAMMA] Review of Systems Review of Systems: Constitutional: No Fever, No Chills ENT/Mouth: No Ear Pain, No Hoarseness, No sore throat Eyes: No Eye Pain, No Swelling, No Redness, No Foreign Body Cardiovascular: No Chest Pain, No SOB Respiratory: No Cough, No Dyspnea Gastrointestinal: No Nausea, No Vomiting, No Diarrhea, No abdominal Pain Genitourinary: No Dysuria, No Hematuria Musculoskeletal: positive right knee pain, No Myalgias, No Joint Swelling Skin: Positive right knee abscess and redness, No Skin lacerations, No rash Neuro: No Weakness, No Numbness, No Paresthesias, No Loss of Consciousness, No Dizziness, No Headache Psych: No Anxiety/Panic, No Depression Heme/Lymph: no easy bruising, no Lymphadenopathy Endocrine: No Polyuria, No Polydipsia Yes all other systems are reviewed and are negative [facility] Past Medical History Attestation statement: The following information was validated with the patient. Source: old records reviewed Medical History Asthma COPD (chronic obstructive pulmonary disease) Smoker Substance abuse Surgical History History of carpal tunnel release Social History Social History Patient Tobacco Use Status: Former Tobacco user Quit Date: Tobacco use type: Cigarette Substance Use Type: Marijuana Advance Directives: No Current occupational status: employed Current occupation: rehabilitation construction specialist/rt hand Physical Exam Vital Signs: Vital Signs: Last Vital Signs Temp 98.8 F 12/27/21 17:45 Pulse 80 12/27/21 17:45 Resp 18 12/27/21 17:45 BP 123/59 L 12/27/21 17:45 Pulse Ox 94 12/27/21 17:45 BMI result Body Mass Index 35.9 Appearance: Alert. Oriented X3. No acute distress. Eyes: Pupils equal, round and reactive to light. ENT: Pharynx normal. Neck: Normal inspection. Neck supple. CVS: Normal heart rate and rhythm. Pulses normal. Respiratory: No respiratory distress. Breath sounds normal. Abdomen: Soft and nontender. Skin: Refer to doctor of naturopathic medicine right knee. Skin warm and dry. Normal skin color. Normal skin turgor. Extremities: No lower extremity edema. Get well-balanced well coordinated. Neuro: No motor deficit. No sensory deficit. Cranial nerves 2-12 intact. Course Course Course Narrative: 41-year-old male presents with right knee swelling, drainage, and cellulitis after being bitten by a spider. States that this occurred approximately 6 days ago and has worsened. He has been applying warm compresses and trying to express pus at home. He does report that there is a decreased amount of swelling because he has been using warm compresses and and trying to get the pus out. He does not report any fevers, chills, diaphoresis, appears nontoxic and is afebrile. Has full range of motion to all extremities, no inguinal lymphadenopathy noted, no tenderness to calf, popliteal or thigh. No testicular tenderness reported. Will treat for cellulitis, abscess with suspected MRSA with doxycycline and cefuroxime. Wound cultures are pending. Patient was encouraged to continue warm compresses and meticulous wound care. Patient verbalized understanding of and agrees to plan of care discharge home. Verbalized understanding of signs and symptoms indicating need for emergent intervention. MDM - Skin/Abscess/Foreign Bdy Differential Diagnosis Differential diagnosis: Likely abscess of skin or subcutaneous tissue, cellulitis and insect bites Medical Records Attestation: I reviewed the patient's medical records. Lab Data Attestation: I reviewed the patient's lab results. Result diagrams: 12/27/21 17:51 12/27/21 17:51 Labs: Lab Results 12/27/21 12/27/21 Range/Units 17:51 17:51 WBC 11.6 H (4.8-10.8) X10*3/uL RBC 4.10 L (4.60-5.80) X10*6/uL Hgb 12.4 L (14.0-18.0) g/dl Hct 37.5 L (42.0-52.0) % MCV 91.5 (80.0-98.0) fL MCH 30.2 (27.0-33.0) pg MCHC 33.1 (31.0-36.0) g/dl RDW 11.9 (11.0-16.0) % Plt Count 234 (160-400) X10*3/uL MPV 9.4 (9.4-12.4) fL Immature Gran % (Auto) 0.3 (0.0-0.4) % Neut % (Auto) 84.1 H (45-73) % Lymph % (Auto) 7.6 L (20-40) % [place] % (Auto) 7.5 (2-11) % Eos % (Auto) 0.3 (0-4) % Baso % (Auto) 0.2 (0-2) % Lymph # (Auto) 0.9 L (1.2-4.9) X10*3/uL [place] # (Auto) 0.9 (0.1-1.2) X10*3/uL Eos # (Auto) 0.0 (0.0-0.4) X10*3/uL Baso # (Auto) 0.0 (0.0-0.2) X10*3/uL Abs Immat Gran (auto) 0.04 H (0.00-0.03) X10*3/uL Absolute Neuts (auto) 9.7 H (2.0-8.3) x10*3/uL Absolute Nucleated RBC 0.000 (0.0-0.012) X10*3/uL Nucleated RBC % (auto) 0.0 (0.0-0.2) /100WBC Sodium 137 (135-145) mmol/L Potassium 3.9 (3.3-5.1) mmol/L Chloride 95 L (96-108) mmol/L Carbon Dioxide 33 H (22-29) mmol/L Anion Gap 13 (12-20) BUN 8 L (9-16) mg/dL Creatinine 0.88 (0.5-1.4) mg/dL Estim Creat Clear Calc 115.8 Estimated GFR > 60 Random Glucose 134 H D (60-115) mg/dL Calcium 9.1 (8.4-10.2) mg/dL Total Bilirubin 0.4 (0.0-1.0) mg/dL AST 20 (5-37) U/L ALT 18 (0-40) U/L Alkaline Phosphatase 68 D (39-117) U/L Total Protein 6.5 D (6.5-8.0) g/dL Albumin 3.9 (3.5-5.0) g/dL Discharge Plan Discharge Clinical Impression: Cellulitis, Abscess of skin or subcutaneous tissue Patient Disposition: Home, Self-Care Instructions: Cellulitis (ED), Abscess (ED), Abscess Follow-up (ED), Warm Compress or Soak (ED) Additional Instructions: You were evaluated for skin infection to the right knee. Please take doxycycline 100 mg every 12 hours for the next 10 days. This medication is photosensitive, you will have a skin reaction if you expose yourself to the sunshine. Please wear a hat, long sleeves, and sunscreen while taking this medication. Please take cefuroxime 500 mg twice a day for the next 10 days. You need both of these antibiotics to fight this infection. If you notice worsening symptoms, fevers or chills please return for immediate evaluation. Please continue with your wound care and warm soaks Thank you for choosing this emergency department for evaluation. Please follow-up with primary care physician as needed. Return to the emergency department for any new, concerning, or worsening symptoms. Prescriptions: New cefuroxime axetil 500 mg tablet 500 mg PO Q12H 10 Days Qty: 20 0RF doxycycline monohydrate 100 mg capsule 100 mg PO BID 10 Days Qty: 20 0RF No Action prednisone 20 mg tablet 20 mg PO BID 4 Days Qty: 8 0RF albuterol sulfate [Ventolin HFA] 90 mcg/actuation HFA aerosol inhaler 2 puff inhalation Q6H PRN (Reason: shortness of breath or wheezing) Qty: 6.7 0RF oxycodone-acetaminophen 5-325 mg tablet 1 tab PO Q6H PRN (Reason: pain) Qty: 5 0RF buprenorphine-naloxone 8-2 mg film 1 strip sublingual TID clonazepam 0.5 mg tablet 0.25 mg PO BID bupropion HCl [Wellbutrin SR] 200 mg tablet sustained-release 12 hr 200 mg PO DAILY Interventions: ED Discharge Assessment Last Done: 12/27/21 21:03 Discharge Date/Time: 12/27/21 21:04
== END 2021-12-27 21:04 | disposition home or self-care (01) ==
PROVIDERS: Emergency Provider Emergency Medicine; PCP Internal Medicine
DX: L03.115 Cellulitis of right lower limb (principal); Z79.899 Other long term (current) drug therapy
CPT/HCPCS: 36415; 80053; 85025; 87071; 87077; 87186; 87205; 99282; 99283